=== PATIENT | female | born 1965 | race Caucasian/White ===

== ENCOUNTER 2017-12-10 06:14 | Inpatient (IN) | payer BC ==
[~2017-12-10] VITALS: Ht 170.2 cm; Wt 58.1 kg
--- NOTE | ~2017-12-10 | P ---
[facility] [place] [address] PROCEDURE REPORT Name: SHALOM PARKER Room #: 443-P [facility] IN M.R.#: [id number] Admission: 12/10/17 Attend Phys: Fredy Del Cid DO Discharge: 12/11/17 Date of : 61 Report #: [id number] THIS REPORT FOR: //name// CC: Fredy Alaniz DATE OF SERVICE: 12/11/2017 PROCEDURE PERFORMED: Colonoscopy. HISTORY OF PRESENT ILLNESS: The patient is a 52-year-old female with a history of fall resulting in a left upper extremity fracture. She has been taking NSAIDs on a regular basis since the injury. On evening, she began having sharp right lower quadrant abdominal pain. Labs were normal. CT scan of the abdomen and pelvis on 12/10/2017 shows unexplained edema in the right lower quadrant medial to the cecum and small bowel. It appears to represent edema in the mesentery adjacent to the distal small bowel. This is more suggestive for a small bowel inflammatory process than appendicitis. No discrete abscess was noted, consider the possibility of a Meckel diverticulum as well as Crohn disease. EGD was just performed today, which showed gastric ulcers and a duodenal ulcer. No active bleeding. Plan is for colonoscopy. DESCRIPTION OF PROCEDURE: The risks and benefits of the procedure were explained to the patient, those risks including but not limited to bleeding, perforation, the risk of sedation. She understood these risks and gave informed consent. Sedation was given using propofol and ketamine per Anesthesia. Next, a digital rectal exam was initially performed, which was normal. Next, using a standard [employer] colonoscope, the scope was placed in the patient's anus and advanced under direct vision to the cecum. The overall prep was excellent. The cecum and the ileocecal valve were normal in appearance. Terminal ileum was intubated. I was able to advance the scope approximately 20 cm into the terminal ileum and no abnormalities were noted. No evidence of inflammation or ulcerations were noted throughout the visualized portions of the terminal ileum. The scope was then brought back into the patient's colon. The ascending, transverse and descending colon were normal. A few scattered diverticula were noted in the sigmoid colon, no evidence of inflammation, otherwise normal. The rectal mucosa was normal. On retroflexion, no abnormalities were noted. The scope was then withdrawn and the procedure terminated. The patient tolerated the procedure well. IMPRESSION: 1. Mild diverticulosis. 2. Otherwise, normal colonoscopy. RECOMMENDATIONS: No evidence of inflammation within the terminal ileum today. [address] [address] PROCEDURE REPORT Name: SHALOM PARKER Room #: 443-P [facility] IN M.R.#: [id number] Admission: 12/10/17 Attend Phys: Fredy Del Cid DO Discharge: 12/11/17 Date of : 61 Report #: [id number] The patient's right lower quadrant abdominal pain has completely resolved. She is afebrile and her white count is normal. Etiology is unclear. We will allow the patient to have a regular diet today. If she tolerates this, would recommend considering discharge to home. As far as her ulcerations in the duodenum and stomach, would recommend daily proton pump inhibitor therapy and holding NSAIDs for now. Thank you for allowing me to participate in her care. <ELECTRONICALLY SIGNED> By: Sorin Poon MD 12/20/17 0922 [id number] Sorin Poon MD /nt
--- NOTE | ~2017-12-10 | S ---
[facility] [place] [address] SURGICAL PATH RPT PROCEDURE Name: SHALOM STEPHENSON Room #: 443-P [facility] IN M.R.#: [id number] Admission: 12/10/17 Date of : 61 Discharge: 12/11/17 Report #: [id number] Path Case #: [id number] PATHOLOGY REPORT COLLECTION DATE: 12/11/2017 RECEIVED DATE: 12/13/2017 SUBMITTING PHYS: Dr. Sorin Poon OTHER PHYS: Dr. Fredy Gonzalez SPECIMEN(S) RECEIVED: A.Bx of gastritis * * * * * * * * * * * * FINAL DIAGNOSIS: A. Bx of gastritis: - Mild chronic inactive gastritis with focal reactive change. - An H. pylori immunostain is negative (Block A1; appropriately reactive control). PATHOLOGIST: Jonathan Ramos M.D. REPORT ELECTRONICALLY SIGNED BY: Jonathan Ramos M.D. DATE/TIME: 12/14/2017 09:36 * * * * * * * * * * * * GROSS PATHOLOGY: Received in formalin, labeled "Shalom Stephenson, MALORIE of gastritis of H. pylori" and consists of 5 castillo mucosal biopsies each averaging 0.2 cm. They are entirely submitted as A1. (YESSI; 12/13/2017) CLINICAL HISTORY: Rule out H. pylori INITIAL CPT CODE(S): A; 35923, 20377 Professional services performed by [facility] at [facility] [address] [place] [address] Technical services performed by [facility] at [address] [place] [address], [address] [address]. [facility] [address] [place] [address] SURGICAL PATH RPT PROCEDURE Name: SHALOM STEPHENSON Room #: 443-P [facility] IN M.R.#: [id number] Admission: 12/10/17 Date of : 61 Discharge: 12/11/17 Report #: [id number] Path Case #: [id number] [address] PHONE: [phone] DIRECTOR: Lionel Gomez M.D. * * * END OF REPORT * * *
--- NOTE | ~2017-12-10 | P ---
[facility] [place] [address] PROCEDURE REPORT Name: SHALOM PARKER Room #: 443-P [facility] IN M.R.#: [id number] Admission: 12/10/17 Attend Phys: Fredy Del Cid DO Discharge: 12/11/17 Date of : 61 Report #: [id number] THIS REPORT FOR: //name// CC: Fredy Alaniz DATE OF SERVICE: 12/11/2017 PROCEDURE PERFORMED: Upper endoscopy with biopsies. HISTORY OF PRESENT ILLNESS: The patient is a 52-year-old female who had a fall with left upper extremity fracture, has been taking NSAIDs on a regular basis, began having severe right lower quadrant abdominal pain on evening. CT scan of the abdomen and pelvis showed mesenteric inflammatory changes in the right lower quadrant. This may be secondary to Crohn's disease, inflammatory process or possible Meckel's diverticulum. Her pain is actually now resolved. Plan is for EGD and colonoscopy today. DESCRIPTION OF PROCEDURE: The risks and benefits of the procedure were explained to the patient, those risks including but not limited to bleeding, perforation, the risk of sedation. She understood these risks and gave informed consent. Sedation was given using propofol and ketamine per anesthesia. Next, using a standard [employer] upper endoscope, the scope was placed in the patient's mouth and advanced under direct vision through the esophagus, stomach and into the second portion of the duodenum. The larynx was normal in appearance. The esophagus was normal throughout. The GE junction was normal. Overall, the gastric mucosa was normal in the fundus and body; in the antrum, however, there were several clean white based ulcers as well as a mild gastritis. No evidence of bleeding. Biopsies were obtained to rule out H. pylori. In the duodenal bulb, a single clean white based ulcer was also noted, again, no evidence of bleeding. The first and second portion of the duodenum was normal. The scope was then withdrawn and the procedure terminated. The patient tolerated the procedure well. IMPRESSION: 1. Antral ulcers with gastritis. 2. Duodenal bulb ulcer. 3. Otherwise, normal upper endoscopy. RECOMMENDATIONS: 1. Await biopsy results. 2. Recommend continue daily PPI therapy. 3. We will proceed with colonoscopy next today. [address] [address] PROCEDURE REPORT Name: SHALOM PARKER Room #: 443-P [facility] IN .R.#: [id number] Admission: 12/10/17 Attend Phys: Fredy Del Cid DO Discharge: 12/11/17 Date of : 61 Report #: [id number] Thank you for allowing me to participate in her care. <ELECTRONICALLY SIGNED> By: Sorin Poon MD 12/20/17 0922 [id number] Sorin Poon MD /nt
[2017-12-10 06:29] VITALS: BP 142/94
[2017-12-10 06:50] LABS: ABSOLUTE NEUTROPHILS 6.4 thou/uL (1.4-8.2); BASOPHILS 0.7 % (0.0-2.0); EOSINOPHILS 0.1 % (0.0-3.0); HEMATOCRIT 41.4 % (37.0-47.0); HEMOGLOBIN 14.4 gm/dL (12.0-15.0); LYMPHOCYTES 14.7 % (24.0-44.0); MCH 32.4 pg (26.0-34.0); MCHC 34.8 g/dL (28.0-37.0); MCV 92.9 fL (80.0-100.0); MONOCYTES 5.3 % (1.0-8.0); PLATELET COUNT 191 thou/uL (150-400); POLYS 79.2 % (36.0-66.0); RBC 4.45 mil/uL (4.20-5.00); RDW 12.4 % (10.5-14.5); WBC 8.1 thou/uL (4.0-11.0)
[2017-12-10 06:55] LABS: URINE BILIRUBIN NEGATIVE (Negative); URINE BLOOD NEGATIVE (Negative); URINE CLARITY CLEAR; URINE COLOR YELLOW; URINE GLUCOSE-RANDOM* NEGATIVE (Negative); URINE KETONES NEGATIVE (Negative); URINE LEUKOCYTES-REFLEX NEGATIVE (Negative); URINE NITRITE-REFLEX NEGATIVE (Negative); URINE PROTEIN (DIPSTICK) TRACE (Negative); URINE SPECIFIC GRAVITY 1.015 (1.005-1.035); URINE UROBILINOGEN 0.2 E.U./dl (0.2-1.0)
[2017-12-10 07:01] LABS: CALCIUM 9.3 mg/dL (8.5-10.1); CREATININE 0.8 mg/dL (0.6-1.0); POTASSIUM 3.8 mmol/L (3.5-5.1)
[2017-12-10 07:07] LABS: ALBUMIN 4.6 g/dL (3.4-5.0); DIRECT BILIRUBIN 0.1 mg/dL (<0.1-0.3); TOTAL BILIRUBIN 0.4 mg/dL (<0.1-1.0); TOTAL PROTEIN 7.7 g/dL (6.4-8.2)
[2017-12-10 14:30] VITALS: BP 118/80
[2017-12-10 15:30] VITALS: BP 118/80
[2017-12-10 19:19] VITALS: BP 121/78
[2017-12-11 04:01] VITALS: BP 122/78
[2017-12-11 05:57] LABS: HEMATOCRIT 39.1 % (37.0-47.0); HEMOGLOBIN 13.3 gm/dL (12.0-15.0); MCH 31.7 pg (26.0-34.0); MCHC 34.1 g/dL (28.0-37.0); MCV 92.9 fL (80.0-100.0); PLATELET COUNT 154 thou/uL (150-400); RBC 4.21 mil/uL (4.20-5.00); RDW 12.4 % (10.5-14.5)
[2017-12-11 06:13] LABS: CALCIUM 9.3 mg/dL (8.5-10.1); CREATININE 0.7 mg/dL (0.6-1.0); POTASSIUM 3.9 mmol/L (3.5-5.1)
[2017-12-11 08:13] VITALS: BP 117/84
[2017-12-11 11:00] VITALS: BP 140/88
[2017-12-11 14:57] VITALS: BP 140/88
== END 2017-12-11 14:55 | disposition home or self-care (01) | DRG 392 ==
LOC: ER 06:14 → EROBS 08:06 → 4S 14:47
PROVIDERS: Emergency Medicine; Family Medicine
DX: K57.32 Diverticulitis of large intestine without perforation or abscess without bleeding (principal); K25.9 Gastric ulcer, unspecified as acute or chronic, without hemorrhage or perforation; K57.90 Diverticulosis of intestine, part unspecified, without perforation or abscess without bleeding; K26.9 Duodenal ulcer, unspecified as acute or chronic, without hemorrhage or perforation
CPT/HCPCS: 10195; 62110; 62900; 70005